=== PATIENT | female | born 1970 | race Caucasian/White ===

== ENCOUNTER 2016-07-21 15:14 | Emergency (ER) | payer OTHER ==
[~2016-07-21] VITALS: Ht 149.9 cm; Wt 65.9 kg
[~2016-07-21 15:14] MED LIST: DESYREL100 MG PO; FLEXERIL10 MG PO; MIRAPEX0.5 MG PO; MOTRIN600 MG PO; PERCOCET 5/31 TABLET PO; RITALIN20 MG PO; ULTRAM50 MG PO
[2016-07-21 16:06] LABS: HEMATOCRIT 33.2 % (36.0-46.0); MCH 24.4 PG (29.0-34.0); MCHC 31.6 G/DL (30.0-36.0); MCV 77.2 FL (83-99); MEAN PLAT.VOLUME 9.7 uM^3 (9.5-12.4); PLATELET COUNT 379 K/uL (156-360); RBC DIS.WIDTH-SD 45.5 % (39-53); WHITE BLOOD COUNT 12.6 K/uL (4.1-10.2)
[2016-07-21 16:16] LABS: CHLORIDE 110 mEq/L (99-109); POTASSIUM 3.5 mEq/L (3.7-5.4); SODIUM 139 mEq/L (136-147)
[2016-07-21 16:18] LABS: GLUCOSE 125 mg/dL (70-99)
[2016-07-21 16:19] LABS: ANION GAP 10 MEQ/L (2-14)
[2016-07-21 16:21] LABS: ALKALINE PHOSPHATASE 116 IU/L (3-129)
[2016-07-21 16:22] LABS: GFR ESTIMATE (CALCULATED) > 59 mL/min/
[2016-07-21 16:23] LABS: UREA NITROGEN (BUN) 12 mg/dL (9-23)
[2016-07-21 16:30] LABS: QUANTITATIVE HCG < 4.0 MIU/ML
[2016-07-21 17:37] LABS: LIPASE 24 U/L (1.0-51.0)
[2016-07-21] MEDS ORDERED: ZOFRAN ODT4 MG PO (19:02)
[2016-07-21] MEDS ORDERED: PERCOCET 5/31 TABLET PO (19:02)
[2016-07-21] MEDS ORDERED: FLOMAX0.4 MG PO (19:02)
[2016-07-21 19:16] LABS: ADD MIUA? YES; BILIRUBIN NEGATIVE; BLOOD MODERATE; COLOR YELLOW ((YELLOW)); GLUCOSE (STRIP) NEGATIVE; KETONES 20; LEUKOCYTES SMALL; NITRITE NEGATIVE; PROTEIN (STRIP) NEGATIVE; SPECIFIC GRAVITY 1.014 (1.000-1.030); UROBILINOGEN 0.2 MG/DL (0.2-1.0)
[2016-07-21 19:27] LABS: BACTERIA NONE SEEN /HPF; EPITHELIAL CELLS 1+ /HPF; MUCUS TRACE /LPF; UCUL ADDED? NO; UNCLASSIFIED CRYSTALS 1+ /HPF; WHITE BLOOD CELLS 0-5 /HPF (0-5)
[2016-07-21 19:28] LABS: CASTS NONE SEEN /LPF; CRYSTALS NONE SEEN
[2016-07-21 20:09] VITALS: BP 149/71
== END 2016-07-21 20:17 | disposition home or self-care (01) ==
LOC: EME 15:14
DX: N13.2 Hydronephrosis with renal and ureteral calculous obstruction (principal); R11.2 Nausea with vomiting, unspecified; R30.0 Dysuria
CPT/HCPCS: 74176; 80053; 81003; 83690; 84702; 85027; 99281; 99285; J1885; J2270; J2405; J7030

== ENCOUNTER → 2016-12-22 | Outpatient (CLI) | payer OTHER ==
[~2016-12-22] VITALS: Ht 149.9 cm; Wt 68.5 kg
[~2016-12-22] MED LIST changes: +FLOMAX0.4 MG PO; +OMEPRAZOLE40 M1 PO; +TYLENOL REGULA325 MG PO; +ZOFRAN ODT4 MG PO
== END | disposition home or self-care (01) ==
LOC: AMB 12-02 12:00
DX: K21.9 Gastro-esophageal reflux disease without esophagitis (principal); R10.13 Epigastric pain; F31.81 Bipolar II disorder; Z82.49 Family history of ischemic heart disease and other diseases of the circulatory system; Z87.891 Personal history of nicotine dependence
CPT/HCPCS: 88305; 88342 TC; J2250; J3010

== ENCOUNTER → 2017-01-14 | Outpatient (CLI) | payer OTHER | END | disposition home or self-care (01) | LOC: NUC 07:17 | DX: R10.13 Epigastric pain (principal); R11.0 Nausea | CPT/HCPCS: 78264; A9541 ==

== ENCOUNTER 2017-12-22 22:36 | Emergency (ER) | payer OTHER ==
[~2017-12-22] VITALS: Ht 149.9 cm; Wt 68.2 kg
[2017-12-23] MEDS ORDERED: NORCO 5/3251 TABLET PO (00:54)
[2017-12-23] MEDS ORDERED: LIDODERM 5% P1 PATCH TD (00:54)
[2017-12-23 01:52] VITALS: BP 134/78
== END 2017-12-23 01:53 | disposition home or self-care (01) ==
LOC: EME 22:36
DX: S86.911A Strain of unspecified muscle(s) and tendon(s) at lower leg level, right leg, initial encounter (principal); X58.XXXA Exposure to other specified factors, initial encounter; I10 Essential (primary) hypertension; F17.200 Nicotine dependence, unspecified, uncomplicated
CPT/HCPCS: 73564; 99281; 99284